=== PATIENT | female | born 1965 | race Caucasian/White ===

== ENCOUNTER 2018-03-23 12:24 | Emergency (ER) | payer BC ==
[2018-03-23] MEDS ORDERED: Sodium Chloride 0.9% 10 ML Syringe FLUSH PRN (13:44)
--- NOTE | 2018-03-23 14:21 | EDM.PDOC ---
<Richy Luke - Last Filed: 03/23/18 14:39> ED HPI GENERAL MEDICAL PROBLEM - General Chief Complaint: Flank Pain Stated Complaint: KIDNEY PAIN Time Seen by Provider: 03/23/18 12:48 Source of Information: Reports: Patient, Family History Limitations: Reports: No Limitations - History of Present Illness INITIAL COMMENTS - FREE TEXT/NARRATIVE: Patient is a 53-year-old female who presents to the ED complaining of flank pain. She reports the pain started yesterday and is located right above the belt -line on her lower back bilaterally. She describes the pain as contraction-like and stabbing that waxes and wanes. Today around 11 am, she developed stabbing midsternal chest pain that is triggered by the back pain/contractions. She has a history of hypertension and hyperlipidemia. Denies chest pressure, diaphoresis , nausea or vomiting. Denies history of back pain pain or recent injury. Does not have history of kidney stones. In addition to the back pain, she reports going into the clinic on Wednesday for a rash on her arms and legs. States she has been itching for a month prior to the rash developing. She reports changing out detergents, lotions, shampoos, and other products. She was started on Prednisone, hydroxyzine for the rash. Labs were drawn which revealed she was anemic. Due to those findings, a stool sample was collected on Wednesday and was positive for blood. Denies melena, but is having dark brown stools and one episode of diarrhea. She is currently taking iron supplements for the anemia. She does have a history of precancerous polyps and is being seen by Dr. Swift in [place]. Her most recent colonoscopy was in April 2017 and reports 4 polyps which were all benign. She is unable to see Dr. Swift, therefore is being referred to Dr. Ta for further evaluation and management Bilateral Flank Pain Score (Numeric/FACES): 7 - Related Data Allergies Allergy/AdvReac Type Severity Reaction Status Date / Time hornet venom Allergy UNKNOWN Verified 03/23/18 12:43 Home Meds: Home Meds Olmesartan/Hydrochlorothiazide [Benicar HCT 40-25 MG] 1 tab PO DAILY 03/23/18 [ History] Rosuvastatin [Crestor] 5 mg PO DAILY 03/23/18 [History] hydrOXYzine HCl [hydrOXYzine] 25 mg PO BEDTIME PRN 03/23/18 [History] predniSONE [Prednisone] 30 mg PO DAILY 03/23/18 [History] Past Medical History [employer] History: Reports: Hematologic History: Reports: Anemia, Iron Deficiency Other Dermatologic History: rash just started wednesday - Infectious Disease History Infectious Disease History: Reports: Chicken Pox, Measles - Past Surgical History HEENT Surgical History: Reports: Cataract Surgery GI Surgical History: Reports: Colonoscopy Social & Family History - Family History Family Medical History: Noncontributory - Tobacco Use Smoking Status *Q: Current Every Day Smoker Years of Tobacco use: 20 Packs/Tins Daily: 1 - Caffeine Use Caffeine Use: Reports: Soda - Recreational Drug Use Recreational Drug Use: No ED ROS GENERAL - Review of Systems Constitutional: Denies: Fever, Chills, Malaise, Diaphoresis, Decreased Appetite Respiratory: Denies: Shortness of Breath, Wheezing, Pleuritic Chest Pain, Cough Cardiovascular: Reports: Chest Pain. Denies: Dyspnea on Exertion, Lightheadedness, Palpitations GI/Abdominal: Reports: Black Stool, Diarrhea. Denies: Abdominal Pain, Bloody Stool, Decreased Appetite, Hematemesis, Melena Musculoskeletal: Reports: Back Pain. Denies: Shoulder Pain, Arm Pain Skin: Reports: Rash (arms and legs bilaterally) Neurological: Reports: Syncope. Denies: Dizziness Psychiatric: Denies: Agitation, Anxiety ED EXAM, GI/ABD - Physical Exam Exam Limited By: No Limitations General Appearance: Alert, WD/WN, No Apparent Distress. No: Anxious Respiratory/Chest: No Respiratory Distress, Lungs Clear, Normal Breath Sounds, No Accessory Muscle Use Cardiovascular: Regular Rate, Rhythm, No Gallop, No JVD, No Murmur, No Rub GI/Abdominal Exam: Normal Bowel Sounds, Soft, Non-Tender, No Distention. No: Guarding, Rigid Rectal (Female) Exam: Normal Exam, Normal Rectal Tone, Other (Stool guaiac positive) Back Exam: Normal Inspection, Full Range of Motion. No: CVA Tenderness (L), CVA Tenderness (R) Neurological: Alert, Oriented, Normal Cognition, No Motor/Sensory Deficits Psychiatric: Normal Affect, Normal Mood Course - Vital Signs Last Recorded V/S: Last Vital Signs Temp 98.2 F 03/23/18 12:34 Pulse 98 03/23/18 15:09 Resp 16 03/23/18 15:09 BP 123/71 03/23/18 15:09 Pulse Ox 99 03/23/18 15:09 - Orders/Labs/Meds Orders: Active Orders 24 hr Category Date Time Status EKG 12 Lead [EKG Documentation Completion] [RC] STAT Care 03/23/18 13:30 Active Peripheral IV Care [RC] . DIRECTED Care 03/23/18 13:45 Active UA W/MICROSCOPIC [URIN] Stat Lab 03/23/18 13:00 Ordered Peripheral IV Insertion Adult [OM.PC] Stat Oth 03/23/18 13:45 Ordered Labs: Laboratory Tests 03/23/18 03/23/18 03/23/18 Range/Units 12:55 12:55 13:00 WBC 8.46 (3.98-10.04) K/mm3 RBC 4.06 (3.98-5.22) M/mm3 Hgb 9.1 L (11.2-15.7) gm/L Hct 31.7 L (34.1-44.9) % MCV 78.1 L (79.4-94.8) fl MCH 22.4 L (25.6-32.2) pg MCHC 28.7 L (32.2-35.5) g/dl RDW Std Deviation 48.3 H (36.4-46.3) fL Plt Count 274 (182-369) K/mm3 MPV 9.9 (9.4-12.3) fl Neut % (Auto) 82.9 H (34.0-71.1) % Lymph % (Auto) 9.0 L (19.3-51.7) % [place] % (Auto) 6.5 (4.7-12.5) % Eos % (Auto) 0.8 (0.7-5.8) Baso % (Auto) 0.2 (0.1-1.2) % Neut # (Auto) 7.01 H (1.56-6.13) K/mm3 Lymph # (Auto) 0.76 L (1.18-3.74) K/mm3 [place] # (Auto) 0.55 H (0.24-0.36) K/mm3 Eos # (Auto) 0.07 (0.04-0.36) K/mm3 Baso # (Auto) 0.02 (0.01-0.08) K/mm3 Manual Slide Review Abnormal smear Troponin I < 0.017 (0.00-0.056) ng/mL Urine Color Light yellow (Yellow) Urine Appearance Clear (Clear) Urine pH 6.0 (5.0-8.0) Ur Specific [place] 1.020 (1.005-1.030) Urine Protein Negative (Negative) Urine Glucose (UA) Negative (Negative) Urine Ketones Negative (Negative) Urine Occult Blood Negative (Negative) Urine Nitrite Negative (Negative) Urine Bilirubin Negative (Negative) Urine Urobilinogen 0.2 (0.2-1.0) Ur Leukocyte Esterase Negative (Negative) Urine RBC 0-5 (0-5) /hpf Urine WBC 0-5 (0-5) /hpf Ur Epithelial Cells 0-5 (0-5) /hpf Urine Bacteria Rare (FEW) /hpf Urine Mucus Not seen (FEW) /hpf Meds: Medications Discontinued Medications Generic Name Dose Route Start Last Admin Trade Name Nicoq PRN Reason Stop Dose Admin Sodium Chloride 10 ml 03/23/18 13:44 03/23/18 12:55 Saline Flush FLUSH 10 ml ASDIRECTED PRN Administration Keep Vein Open Departure - Departure Disposition: Home, Self-Care 01 Clinical Impression: Atypical chest pain Anemia Qualifiers: Anemia type: unspecified type Qualified Code(s): D64.9 - Anemia, unspecified - Discharge Information Instructions: Anemia, Nonspecific Chest Pain, [id number] Referrals: Lorie Valente, MACHINE CAPTAIN [Primary Care Provider] - Forms: ED Department Discharge Additional Instructions: Your hgb was 9.1 today, 9.2 on Wednesday 2 days ago. Your heart and lungs check out well today. Your potassium was 3.3 on Wednesday, mildly low. Stop the potassium supplement for now as that can be hard on the stomach, try eat 1 or 2 bananas per day. See Dr Ta for endoscopy, possible colonoscopy as planned. Follow up clinic as needed, return to ED as needed. - My Orders Last 24 Hours: My Active Orders 03/23/18 13:00 UA W/MICROSCOPIC [URIN] Stat 03/23/18 13:30 EKG 12 Lead [EKG Documentation Completion] [RC] STAT 03/23/18 13:45 Peripheral IV Care [RC] . DIRECTED Peripheral IV Insertion Adult [OM.PC] Stat - Assessment/Plan Last 24 Hours: My Active Orders 03/23/18 13:00 UA W/MICROSCOPIC [URIN] Stat 03/23/18 13:30 EKG 12 Lead [EKG Documentation Completion] [RC] STAT 03/23/18 13:45 Peripheral IV Care [RC] . DIRECTED Peripheral IV Insertion Adult [OM.PC] Stat <Vijay Wilson L - Last Filed: 03/23/18 19:30> ED ROS GENERAL - Review of Systems Review Of Systems: See Below ED EXAM, GI/ABD - Physical Exam Exam: See Below Course - Re-Assessments/Exams Free Text/Narrative Re-Assessment/Exam: 03/23/18 19:28 initial hx and exam was done by Alfonzo Ramos, PLEATING MACHINE OPERATOR student. I agree with her hx and exam. I have also evaluated patient. EKG does not show acute changes. trop did come back normal. That was her main concern at this time. Hgb today 9.1, 9.2 2 days ago. Discharge instr. as documented. Departure - Departure Time of Disposition: 14:56 Condition: Fair
== END 2018-03-23 15:09 | disposition home or self-care (01) ==
LOC: JD.ED 12:24
DX: R07.89 Other chest pain (principal); D64.9 Anemia, unspecified; Z79.899 Other long term (current) drug therapy; Z91.030 Bee allergy status; F17.210 Nicotine dependence, cigarettes, uncomplicated
CPT/HCPCS: 36415; 81001; 84484; 85025; 93005; 99285; J7050; 93010; 99284-25

== ENCOUNTER 2019-08-21 08:45 | Emergency (ER) | payer BC ==
--- NOTE | 2019-08-21 09:09 | EDM.PDOC ---
ED HPI GENERAL MEDICAL PROBLEM - General Chief Complaint: Gastrointestinal Problem Stated Complaint: SOB AND FEELS LIKE SHE IS GONNA PASS OUT Time Seen by Provider: 08/21/19 09:03 Source of Information: Reports: Patient, Family (spouse) - History of Present Illness INITIAL COMMENTS - FREE TEXT/NARRATIVE: 54-year-old female presents the ED feeling very weak dizzy and lightheaded. States that Wednesday last week August 16 she noticed dark black tarry stools and similarly they continued throughout or Wednesday and Wednesday. Yesterday she had a fairly normal colored stool. He is been having occult GI bleeding for about a year and a half with out inability to identify source. She reports she's had 6 upper GI endoscopies 2 colonoscopies and 1 swallowing of the camera which was unsuccessful in identifying source of bleeding. At present she feels very weak and tired and short of breath on minimal exertion.. She does take iron supplement daily. Last menstrual period was about 6 years ago. No other sources of bleeding identified. She has never used Pepto-Bismol. Onset: Gradual Onset Date: 08/16/19 (First day of black tarry stools was last week Wednesday.) Duration: Day(s):, Intermittent Location: Reports: Other (GI bleeding of unclear origin 18 months. By history it sounds like no identifiable source is been identified on colonoscopy and upper GI endoscopy suggesting a small bowel source.) Quality: Reports: Other (Has some diffuse lower abdominal discomfort periumbilical discomfort at times.) Severity: Mild (Constipated.) Improves with: Reports: None Worsens with: Reports: None Context: Denies: Activity, Exercise, Lifting, Sick Contact, Trauma, Other Associated Symptoms: Reports: Cough, cough w sputum (Chronic cough.), Malaise, Shortness of Breath, Weakness. 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 Nothing new.) - Related Data Allergies Allergy/AdvReac Type Severity Reaction Status Date / Time hornet venom Allergy UNKNOWN Verified 08/21/19 08:59 Home Meds: Home Meds Olmesartan/Hydrochlorothiazide [Benicar HCT 40-25 MG] 1 tab PO DAILY 03/23/18 [ History] Rosuvastatin [Crestor] 5 mg PO DAILY 03/23/18 [History] EPINEPHrine [Epipen] 1 dose IM ASDIRECTED PRN 08/21/19 [History] Ferrous Sulfate 27 mg PO DAILY 08/21/19 [History] Krill Oil 500 mg PO BID 08/21/19 [History] L.acidoph,Paracasei, B.lactis [Probiotic] 1 each PO DAILY 08/21/19 [History] Multivit-Min/Iron/Folic/Lutein [Multivitamin Women 50 Plus Tab] 1 each PO DAILY 08/21/19 [History] Omalizumab [Xolair] 150 mg IM ASDIRECTED 08/21/19 [History] Pantoprazole [ProTONIX] 40 mg PO BID 08/21/19 [History] Rhubarb Root Extract [Estroven Cmplt Menopause Rlf] 4 mg PO DAILY 08/21/19 [ History] Past Medical History CARAMEL C[employer] HAND History: Reports: Hematologic History: Reports: Anemia, Iron Deficiency Other Dermatologic History: rash just started wednesday. 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 The feeling is if this is related to likely GI source of bleeding i.e. carcinoid syndrome. - Infectious Disease History Infectious Disease History: Reports: Chicken Pox, Measles - Past Surgical History HEENT Surgical History: Reports: Cataract Surgery GI Surgical History: Reports: Colonoscopy Social & Family History - Family History Family Medical History: Noncontributory - Caffeine Use Caffeine Use: Reports: Soda - Living Situation & Occupation Living situation: Reports: Single Occupation: Employed [employer] [facility] - Review of Systems Review Of Systems: See Below Constitutional: Reports: Malaise, Weakness, Fatigue. Denies: Fever, Chills HEENT: Reports: No Symptoms Respiratory: Reports: No Symptoms Cardiovascular: Reports: Blood Pressure Problem (Sometimes runs a little low.), Palpitations Endocrine: Reports: Fatigue GI/Abdominal: Reports: Abdominal Pain (Abdominal discomfort periumbilical and infraumbilical.), Melena (Dark black tarry stool.). Denies: Decreased Appetite : Reports: No Symptoms Musculoskeletal: Reports: Other Skin: Reports: No Symptoms (Revised weakness in her muscles.) Neurological: Reports: No Symptoms Psychiatric: Reports: No Symptoms Hematologic/Lymphatic: Reports: No Symptoms Immunologic: Reports: No Symptoms ED EXAM, GI/ABD - Physical Exam Exam: See Below Exam Limited By: Other (Does appear mildly pallid. Temperatures 36.7 heart rate is 105 at the bedside. Respiratory 16 BP 126/50 lying. Pulse is 99.) Eyes: Bilateral: Pale Conjunctiva (Mild bilaterally.) Head: Atraumatic, Normocephalic, Other Neck: Normal Inspection (Tongue appears to be slightly wider than normal.), Supple, Non-Tender, Full Range of Motion. No: Lymphadenopathy (L), Lymphadenopathy (R) Respiratory/Chest: No Respiratory Distress, Lungs Clear, Normal Breath Sounds, No Accessory Muscle Use, Chest Non-Tender Cardiovascular: Normal Peripheral Pulses, Regular Rate, Rhythm, No Edema, No Gallop, No Murmur, No Rub GI/Abdominal Exam: Soft, Non-Tender ( Her from 2 previous C-sections.), No Organomegaly, No Abnormal Bruit, No Mass, Pelvis Stable, Abnormal Bowel Sounds, Other (Gallstones from her fairly quiescent in all 4 quadrants.) Back Exam: Normal Inspection, Full Range of Motion. No: CVA Tenderness (L), CVA Tenderness (R) Extremities: Normal Inspection, Normal Range of Motion, Non-Tender Neurological: Alert, Oriented, CN II-XII Intact, Normal Cognition, Normal Gait Psychiatric: Normal Affect, Normal Mood Skin Exam: Warm, Dry, Intact, No Rash (Mildly pallid.), Pallor Course - Vital Signs Last Recorded V/S: Last Vital Signs Temp 36.9 C 08/21/19 18:20 Pulse 84 08/21/19 18:20 Resp 20 08/21/19 18:20 BP 114/53 L 08/21/19 18:20 Pulse Ox 93 L 08/21/19 18:20 Orthostatic Blood Pressure [ 61/39 Standing] Orthostatic Blood Pressure [ 89/35 Sitting] Orthostatic Blood Pressure [ 91/44 Supine] - Orders/Labs/Meds Orders: Active Orders 24 hr Category Date Time Status Orthostatic Vital Signs [RC] ASDIRECTED Care 08/21/19 09:03 Active Transfuse PRBC [Transfuse Red Blood Cells] [COMM] Stat Oth 08/21/19 09:29 Ordered Labs: Laboratory Tests 08/21/19 08/21/19 08/21/19 Range/Units 09:07 09:07 09:07 WBC 7.59 (3.98-10.04) K/mm3 RBC 2.75 L (3.98-5.22) M/mm3 Hgb 6.9 L* D (11.2-15.7) gm/dl Hct 23.5 L (34.1-44.9) % MCV 85.5 D (79.4-94.8) fl MCH 25.1 L (25.6-32.2) pg MCHC 29.4 L (32.2-35.5) g/dl RDW Std Deviation 49.4 H (36.4-46.3) fL Plt Count 225 (182-369) K/mm3 MPV 9.0 L (9.4-12.3) fl Neutrophils % (Manual) 90 H (40-60) % Band Neutrophils % 0 (0-10) % Lymphocytes % (Manual) 4 L (20-40) % Atypical Lymphs % 0 % Monocytes % (Manual) 2 (2-10) % Eosinophils % (Manual) 3 (0.7-5.8) % Basophils % (Manual) 1 (0.1-1.2) Platelet Estimate Adequate Poikilocytosis 1+ slight Anisocytosis 1+ slight RBC Morph Comment Not Reportable ESR (0-20) mm/hr Percent Retic (0.50-1.70) % PT 10.3 (9.7-12.0) SECONDS INR 0.94 APTT 22 (22-31) SECONDS Sodium 141 (136-145) mEq/L Potassium 3.3 L (3.5-5.1) mEq/L Chloride 105 (98-107) mEq/L Carbon Dioxide 25 (21-32) mEq/L Anion Gap 14.3 (5-15) BUN 16 (7-18) mg/dL Creatinine 1.0 (0.55-1.02) mg/dL Est Cr Clr Drug Dosing 57.87 mL/min Estimated GFR (MDRD) 58 (>60) mL/min BUN/Creatinine Ratio 16.0 (14-18) Glucose 154 H (74-106) mg/dL Calcium 8.8 (8.5-10.1) mg/dL Magnesium 1.8 (1.8-2.4) mg/dl Iron (50-170) ug/dL TIBC (100-400) ug/dL % Saturation (20-55) % Transferrin (202-364) mg/dL Total Bilirubin 0.3 (0.2-1.0) mg/dL AST 25 (15-37) U/L ALT 43 (14-59) U/L Alkaline Phosphatase 76 (46-116) U/L C-Reactive Protein < 0.2 (<1.0) mg/dL Total Protein 7.1 (6.4-8.2) g/dl Albumin 3.6 (3.4-5.0) g/dl Globulin 3.5 gm/dL Albumin/Globulin Ratio 1.0 (1-2) Urine Color (Yellow) Urine Appearance (Clear) Urine pH (5.0-8.0) Ur Specific [place] (1.005-1.030) Urine Protein (Negative) Urine Glucose (UA) (Negative) Urine Ketones (Negative) Urine Occult Blood (Negative) Urine Nitrite (Negative) Urine Bilirubin (Negative) Urine Urobilinogen (0.2-1.0) Ur Leukocyte Esterase (Negative) Urine RBC (0-5) /hpf Urine WBC (0-5) /hpf Ur Squamous Epith Cells (0-5) /hpf Urine Bacteria (FEW) /hpf Hyaline Casts (0-5) /lpf Urine Mucus (FEW) /hpf Blood Type Gel Antibody Screen Crossmatch 08/21/19 08/21/19 08/21/19 Range/Units 09:07 09:07 09:07 WBC (3.98-10.04) K/mm3 RBC (3.98-5.22) M/mm3 Hgb (11.2-15.7) gm/dl Hct (34.1-44.9) % MCV (79.4-94.8) fl MCH (25.6-32.2) pg MCHC (32.2-35.5) g/dl RDW Std Deviation (36.4-46.3) fL Plt Count (182-369) K/mm3 MPV (9.4-12.3) fl Neutrophils % (Manual) (40-60) % Band Neutrophils % (0-10) % Lymphocytes % (Manual) (20-40) % Atypical Lymphs % % Monocytes % (Manual) (2-10) % Eosinophils % (Manual) (0.7-5.8) % Basophils % (Manual) (0.1-1.2) Platelet Estimate Poikilocytosis Anisocytosis RBC Morph Comment ESR 48 H (0-20) mm/hr Percent Retic (0.50-1.70) % PT (9.7-12.0) SECONDS INR APTT (22-31) SECONDS Sodium (136-145) mEq/L Potassium (3.5-5.1) mEq/L Chloride (98-107) mEq/L Carbon Dioxide (21-32) mEq/L Anion Gap (5-15) BUN (7-18) mg/dL Creatinine (0.55-1.02) mg/dL Est Cr Clr Drug Dosing mL/min Estimated GFR (MDRD) (>60) mL/min BUN/Creatinine Ratio (14-18) Glucose (74-106) mg/dL Calcium (8.5-10.1) mg/dL Magnesium (1.8-2.4) mg/dl Iron 14 L (50-170) ug/dL TIBC 540 H (100-400) ug/dL % Saturation 3 L (20-55) % Transferrin 432 H (202-364) mg/dL Total Bilirubin (0.2-1.0) mg/dL AST (15-37) U/L ALT (14-59) U/L Alkaline Phosphatase (46-116) U/L C-Reactive Protein (<1.0) mg/dL Total Protein (6.4-8.2) g/dl Albumin (3.4-5.0) g/dl Globulin gm/dL Albumin/Globulin Ratio (1-2) Urine Color (Yellow) Urine Appearance (Clear) Urine pH (5.0-8.0) Ur Specific [place] (1.005-1.030) Urine Protein (Negative) Urine Glucose (UA) (Negative) Urine Ketones (Negative) Urine Occult Blood (Negative) Urine Nitrite (Negative) Urine Bilirubin (Negative) Urine Urobilinogen (0.2-1.0) Ur Leukocyte Esterase (Negative) Urine RBC (0-5) /hpf Urine WBC (0-5) /hpf Ur Squamous Epith Cells (0-5) /hpf Urine Bacteria (FEW) /hpf Hyaline Casts (0-5) /lpf Urine Mucus (FEW) /hpf Blood Type A POSITIVE Gel Antibody Screen Negative Crossmatch See Detail 08/21/19 08/21/19 Range/Units 09:07 11:02 WBC (3.98-10.04) K/mm3 RBC (3.98-5.22) M/mm3 Hgb (11.2-15.7) gm/dl Hct (34.1-44.9) % MCV (79.4-94.8) fl MCH (25.6-32.2) pg MCHC (32.2-35.5) g/dl RDW Std Deviation (36.4-46.3) fL Plt Count (182-369) K/mm3 MPV (9.4-12.3) fl Neutrophils % (Manual) (40-60) % Band Neutrophils % (0-10) % Lymphocytes % (Manual) (20-40) % Atypical Lymphs % % Monocytes % (Manual) (2-10) % Eosinophils % (Manual) (0.7-5.8) % Basophils % (Manual) (0.1-1.2) Platelet Estimate Poikilocytosis Anisocytosis RBC Morph Comment ESR (0-20) mm/hr Percent Retic 4.00 H (0.50-1.70) % PT (9.7-12.0) SECONDS INR APTT (22-31) SECONDS Sodium (136-145) mEq/L Potassium (3.5-5.1) mEq/L Chloride (98-107) mEq/L Carbon Dioxide (21-32) mEq/L Anion Gap (5-15) BUN (7-18) mg/dL Creatinine (0.55-1.02) mg/dL Est Cr Clr Drug Dosing mL/min Estimated GFR (MDRD) (>60) mL/min BUN/Creatinine Ratio (14-18) Glucose (74-106) mg/dL Calcium (8.5-10.1) mg/dL Magnesium (1.8-2.4) mg/dl Iron (50-170) ug/dL TIBC (100-400) ug/dL % Saturation (20-55) % Transferrin (202-364) mg/dL Total Bilirubin (0.2-1.0) mg/dL AST (15-37) U/L ALT (14-59) U/L Alkaline Phosphatase (46-116) U/L C-Reactive Protein (<1.0) mg/dL Total Protein (6.4-8.2) g/dl Albumin (3.4-5.0) g/dl Globulin gm/dL Albumin/Globulin Ratio (1-2) Urine Color Yellow (Yellow) Urine Appearance Clear (Clear) Urine pH 6.0 (5.0-8.0) Ur Specific [place] 1.025 (1.005-1.030) Urine Protein Negative (Negative) Urine Glucose (UA) Negative (Negative) Urine Ketones Negative (Negative) Urine Occult Blood Negative (Negative) Urine Nitrite Negative (Negative) Urine Bilirubin Negative (Negative) Urine Urobilinogen 0.2 (0.2-1.0) Ur Leukocyte Esterase Negative (Negative) Urine RBC 0-5 (0-5) /hpf Urine WBC 0-5 (0-5) /hpf Ur Squamous Epith Cells 0-5 (0-5) /hpf Urine Bacteria Few (FEW) /hpf Hyaline Casts 0-5 (0-5) /lpf Urine Mucus Few (FEW) /hpf Blood Type Gel Antibody Screen Crossmatch Meds: Medications Discontinued Medications Generic Name Dose Route Start Last Admin Trade Name Freq PRN Reason Stop Dose Admin Sodium Chloride 1,000 mls @ 500 mls/hr 08/21/19 09:15 08/21/19 09:15 Normal Saline IV 500 mls/hr ASDIRECTED BALTAZAR Administration Sodium Chloride 500 mls @ 50 mls/hr 08/21/19 11:45 08/21/19 11:55 Normal Saline IV 50 mls/hr ASDIRECTED BALTAZAR Administration - Radiology Interpretation Free Text/Narrative:: 54-year-old female presents to the ED for evaluation of dark black tarry stools per rectum starting last August 16. Stool yesterday was formed up and normal in color. She has had been having intermittent GI bleeds for the last year and a half for which no source has been identified. She's had 6 upper GI endoscopies and 2 colonoscopies and one camera that she swallowed that did not define the source of bleeding. She has an unusual symptom of generalized pruritus which is felt to be related to the GI bleeding source. Possible carcinoid syndrome. At present she presents because she is dyspneic lightheaded and short of breath on minimal exertion believing that she once again is anemic enough to need of blood transfusion. He has had to have several blood transfusions over the last year and a half. Vital signs show BP 91/44 supine with a heart rate of 95. Sitting blood pressure was 89/35 with a heart rate of 101 and standing it was 61/39 with a pulse rate of 99. Patient will have blood typed and screened. Routine labs performed. She will likely need 2 units of blood. IV will be D5 normal saline at 500 mils per hour at this time. - Re-Assessments/Exams Free Text/Narrative Re-Assessment/Exam: 08/21/19 09:30 hemoglobin returned at 6.9. For the type and crossed for 3 units of packed RBCs to get her above 9 since she is symptomatic and orthostatic. Consent will be signed for transfusion of 3 units of packed cells. has consented to 3 units of packed cells. 08/21/19 14:00: Patient has completed first unit of packed cells with no problems. Second unit is just been started. Her pressure is 104/50 sats are 95% heart rate is 86 in sinus.Labs reveal a total white count of 7.59. Hemoglobin is 6.9 with hematocrit of 23.5. MCV is 85.5. Platelet count 225,000. The smear shows 1+ poikilocytosis and 1+ anisocytosis. Sedimentation rate is 48% reticulocyte count is 4.0 with normal being up to 1.7. PT is 10.3 with an INR of 0.94 PTT is 22. Sodium 141 with a potassium of 3.3. Chloride 105 with a bicarbonate 25. Anion gap is 14.3. BUN is 16 with a creatinine of 1.0. GFR is 58 glucose 154 calcium 8.8 magnesium 1.8. Iron is low at 14 with a total iron binding capacity of 432 which is elevated. Percent saturation is 3. Serum transferrin is elevated at 432. Total bilirubin is 0.3 AST is 25 ALT is 43 C- reactive protein is less than 0.2. Urinalysis is normal. 08/21/19 15:56 patient is doing well. O2 sats remained 94-95%. BP has improved to 125/97. Heart rate is 78 in sinus 08/21/19 17:51 currently has about a half a unit of blood to infuse. She's had no problems with the 3 units that are transfused. Blood pressure is 117/60 heart rate is 79 in sinus. 08/21/19 18:27 is completed 3 units of packed cells. She will be discharged to home. Plan is to follow-up with in a few days time in the hopes of trying to arrange consultation at the [facility]. I think this is certainly advisable. I'm not sure if there is anybody in [place] that does this type of work to look for a potential bleeding source from the small bowel. Departure - Departure Time of Disposition: 18:28 Disposition: Home, Self-Care 01 Condition: Fair Clinical Impression: Recurrent gastrointestinal hemorrhage Anemia Qualifiers: Anemia type: unspecified type Qualified Code(s): D64.9 - Anemia, unspecified - Discharge Information *PRESCRIPTION DRUG MONITORING PROGRAM REVIEWED*: Not Applicable *COPY OF PRESCRIPTION DRUG MONITORING REPORT IN PATIENT FRANCIS: Not Applicable Instructions: Blood Transfusion, Adult, [id number], Gastrointestinal Bleeding , [id number] Referrals: Lorie Valenet [employer] [Primary Care Provider] - Forms: ED Department Discharge Additional Instructions: Evaluation the emergency room today in regards to marked symptoms of anemia. He recognized dark black tarry stools occurring last Wednesday that lasted for 3-1/ 2 days. Normal bowel movement yesterday. Today you had significant symptoms of feeling very lightheaded and dizzy upon standing as well as shortness of breath on minimal exertion. Lab tests revealed a hemoglobin of 6.9. Studies revealed you to be quite low on iron due to persistent blood loss in the GI tract of unclear origin. You therefore received 3 units of packed red blood cells while in the emergency department to bring her hemoglobin up close to 9.5-10. You do need further investigations as to the source of GI bleeding since upper GI endoscopy 6 has not yielded any obvious ulceration in the upper GI tree to cause recurrent bleeding. No colonoscopy 2 is not yielded any positive results. This suggests that you have a bleeding lesion somewhere within the 21 feet of small bowel. Therefore further investigation is definitely required as to the source of the bleeding. Please follow-up with your normal care provider to arrange further gastroenterology studies and perhaps follow-up at the [facility] for definitive management to see if they can identify the source of persistent recurrent bleeding. Sepsis Event Note - Evaluation Sepsis Screening Result: No Definite Risk - Focused Exam Date Exam was Performed: 08/22/19 Time Exam was Performed: 06:57 - My Orders Last 24 Hours: My Active Orders 08/21/19 09:03 Orthostatic Vital Signs [RC] ASDIRECTED 08/21/19 09:29 Transfuse PRBC [Transfuse Red Blood Cells] [COMM] Stat - Assessment/Plan Last 24 Hours: My Active Orders 08/21/19 09:03 Orthostatic Vital Signs [RC] ASDIRECTED 08/21/19 09:29 Transfuse PRBC [Transfuse Red Blood Cells] [COMM] Stat
[2019-08-21] MEDS ORDERED: Sodium Chloride 0.9% 1,000 ML IV SCH (09:15)
[2019-08-21] MEDS ORDERED: Sodium Chloride 0.9% 500 ML IV SCH (11:45)
== END 2019-08-21 18:45 | disposition home or self-care (01) ==
LOC: JD.ED 08:45
DX: K92.2 Gastrointestinal hemorrhage, unspecified (principal); D64.9 Anemia, unspecified; Z91.030 Bee allergy status
CPT/HCPCS: 36415; 36430; 80053; 81001; 83540; 83735; 84466; 85007; 85027; 85045; 85610; 85652; 85730; 86140; 86850; 86900; 86901; 86922; J7030; J7040; P9016; 99284

== ENCOUNTER 2019-09-21 18:27 | Emergency (ER) | payer BC ==
[2019-09-21] MEDS ORDERED: Sodium Chloride 0.9% 10 ML Syringe FLUSH PRN (18:41)
--- NOTE | 2019-09-21 19:09 | EDM.PDOC ---
ED HPI GENERAL MEDICAL PROBLEM - General Chief Complaint: Gastrointestinal Problem Stated Complaint: HEMOGLOBIN AT 7.5 Time Seen by Provider: 09/21/19 18:41 Source of Information: Reports: Patient, Family (spouse) History Limitations: Reports: No Limitations - History of Present Illness INITIAL COMMENTS - FREE TEXT/NARRATIVE: 54-year-old female presents the ED for evaluation of recurrent bleeding of unclear etiology. Patient has had recurrent bouts of GI bleeding for many months and has had multiple EGDs I believe 5 and 3 colonoscopies and a camera study without identification of source of bleeding. Her last hospitalization here your hemoglobin was 11.2 and it stayed stable up until Wednesday when she started to have black tarry stools once again. This is September 12.3 black tarry stools that day. She only had one and felt that she had become more constipated by Wednesday. Average she's been having one black stool to a day and but has had 2 so far today. When she presented to the clinic this morning to see at [facility] her hemoglobin was 8.7. And she seen him this afternoon she had another dark black stool. Hemoglobin then dropped further to 7.5. She is feeling a little bit lightheaded and dizzy with standing. Short of breath on minimal exertion. No cramping or extremities. Pain. Has no abdominal pain cramping. She's never had any hematemesis. She is scheduled apparently to travel to the [facility] sometime in December to see a electronics utility worker there since the source of her bleeding has not been identified in [place]. Present she is orthostatic and will require some fluids. Is on traveling to [facility] by private vehicle with her driving. Aid Units of blood. It was felt that this suggest delayed her transfer by cross-matching her here. Get on the road as soon as possible due to the late hour. Onset: Gradual Onset Date: 09/17/19 (Black tarry stools on average 3 times daily for the last 4 days.) Duration: Day(s):, Intermittent, Other (Continuing blood loss) Location: Reports: Abdomen, Other (Continued black tarry stools for 4 days) Quality: Reports: Other (Lightheaded and dizzy with standing) Severity: Mild Improves with: Reports: None Worsens with: Reports: None Context: Denies: Activity, Exercise, Lifting, Sick Contact, Trauma Associated Symptoms: Reports: Malaise, Shortness of Breath (On exertion). Denies: No Other Symptoms, Confusion, Chest Pain, Cough, cough w sputum, Diaphoresis, Fever/Chills, Headaches, Loss of Appetite, Nausea/Vomiting, Rash, Seizure, Syncope, Weakness - Related Data Allergies Allergy/AdvReac Type Severity Reaction Status Date / Time hornet venom Allergy UNKNOWN Verified 09/21/19 18:40 Home Meds: Home Meds Olmesartan/Hydrochlorothiazide [Benicar HCT 40-25 MG] 1 tab PO DAILY 03/23/18 [ History] Rosuvastatin [Crestor] 5 mg PO DAILY 03/23/18 [History] EPINEPHrine [Epipen] 1 dose IM ASDIRECTED PRN 08/21/19 [History] Krill Oil 500 mg PO BID 08/21/19 [History] Multivit-Min/Iron/Folic/Lutein [Multivitamin Women 50 Plus Tab] 1 each PO DAILY 08/21/19 [History] Omalizumab [Xolair] 150 mg IM ASDIRECTED 08/21/19 [History] Pantoprazole [ProTONIX] 40 mg PO BID 08/21/19 [History] Rhubarb Root Extract [Estroven Cmplt Menopause Rlf] 4 mg PO DAILY 08/21/19 [ History] Ferrous Sulfate. 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 The feeling is if this is related to likely GI source of bleeding i.e. carcinoid syndrome. - Infectious Disease History Infectious Disease History: Reports: Chicken Pox, Measles - Past Surgical History HEENT Surgical History: Reports: Cataract Surgery GI Surgical History: Reports: Colonoscopy, EGD Female Surgical History: Reports: Section Social & Family History - Family History Family Medical History: Noncontributory - Tobacco Use Smoking Status *Q: Current Every Day Smoker Years of Tobacco use: 30 Packs/Tins Daily: 1 - Caffeine Use Caffeine Use: Reports: Energy Drinks Other Caffeine Use: 1 daily - Recreational Drug Use Recreational Drug Use: No - Living Situation & Occupation Living situation: Reports: Single Occupation: Employed ED ROS GENERAL - Review of Systems Review Of Systems: See Below Constitutional: Reports: Malaise, Weakness, Fatigue, Decreased Appetite. Denies : Fever, Chills HEENT: Reports: No Symptoms Respiratory: Reports: Shortness of Breath. Denies: Wheezing, Pleuritic Chest Pain (On exertion.), Cough, Sputum, Hemoptysis Cardiovascular: Reports: Blood Pressure Problem, Dyspnea on Exertion (Continue going up a flight of stairs), Lightheadedness. Denies: Chest Pain, Claudication , Edema, Orthopnea Endocrine: Reports: Fatigue GI/Abdominal: Reports: Melena (Alexei he stools on average 3 times daily for the last 4 days.). Denies: Abdominal Pain, Diarrhea, Decreased Appetite, Flatus , Hematemesis : Reports: No Symptoms Musculoskeletal: Reports: No Symptoms Skin: Reports: Pallor Neurological: Reports: Dizziness Psychiatric: Reports: No Symptoms ED EXAM, GI/ABD - Physical Exam Exam: See Below Exam Limited By: No Limitations General Appearance: Alert, WD/WN, No Apparent Distress, Other (She is obviously quite pallid. Is 36.6 heart rate was 108 at the bedside BP was 150/63 at the time of check-in. Orthostatics proved positive for with little change in her heart rate but a significant drop in systolic blood pressure into the 87 systolic range.) Eyes: Bilateral: Pale Conjunctiva (Moderate) Ears: Normal External Exam, Normal TMs Nose: Normal Inspection Throat/Mouth: Normal Inspection, Normal Oropharynx, Normal Voice, Other Head: Atraumatic, Normocephalic (Lips are pallid as is her tongue.) Neck: Normal Inspection, Supple, Non-Tender, Full Range of Motion. No: Lymphadenopathy (L), Lymphadenopathy (R) Respiratory/Chest: No Respiratory Distress, Lungs Clear, Normal Breath Sounds, No Accessory Muscle Use Cardiovascular: Regular Rate, Rhythm (Heart rate on my assessment was 98/m.), No Edema, No Gallop, No Murmur, No Rub GI/Abdominal Exam: Normal Bowel Sounds, Soft, Non-Tender, No Organomegaly, No Abnormal Bruit, No Mass, Pelvis Stable Back Exam: Normal Inspection, Full Range of Motion. No: CVA Tenderness (L), CVA Tenderness (R) Extremities: Normal Inspection, Normal Range of Motion, Non-Tender Neurological: Alert, Oriented, CN II-XII Intact, Normal Cognition Psychiatric: Normal Affect, Normal Mood Skin Exam: Warm, Dry, Intact, Pallor (Moderate pallor.) Course - Vital Signs Last Recorded V/S: Last Vital Signs Temp 36.6 C 09/21/19 18:35 Pulse 108 H 09/21/19 18:35 Resp 17 09/21/19 18:35 BP 152/63 H 09/21/19 18:35 Pulse Ox 100 09/21/19 18:35 Orthostatic Blood Pressure [ 83/50 Standing] Orthostatic Blood Pressure [ 97/55 Sitting] Orthostatic Blood Pressure [ 115/56 Supine] - Orders/Labs/Meds Orders: Active Orders 24 hr Category Date Time Status Orthostatic Vital Signs [RC] ASDIRECTED Care 09/21/19 19:01 Active Peripheral IV Care [RC] . DIRECTED Care 09/21/19 18:43 Active TYPE AND SCREEN [BBK] Stat Lab 09/21/19 19:36 Received Sodium Chloride 0.9% [Normal Saline] 1,000 ml Med 09/21/19 19:15 Active IV ASDIRECTED Sodium Chloride 0.9% [Saline Flush] Med 09/21/19 18:41 Active 10 ml FLUSH ASDIRECTED PRN Peripheral IV Insertion Adult [OM.PC] Stat Oth 09/21/19 18:42 Ordered Medication Orders Sodium Chloride (Normal Saline) 1,000 mls @ 999 mls/hr IV ASDIRECTED BALTAZAR Last Admin: 09/21/19 19:39 Dose: 999 mls/hr Sodium Chloride (Saline Flush) 10 ml FLUSH ASDIRECTED PRN PRN Reason: Keep Vein Open Last Admin: 09/21/19 19:39 Dose: 10 ml Labs: Laboratory Tests 09/21/19 09/21/19 Range/Units 19:36 19:36 WBC 8.15 (3.98-10.04) K/mm3 RBC 2.58 L (3.98-5.22) M/mm3 Hgb 7.1 L* (11.2-15.7) gm/dl Hct 23.4 L (34.1-44.9) % MCV 90.7 D (79.4-94.8) fl MCH 27.5 (25.6-32.2) pg MCHC 30.3 L (32.2-35.5) g/dl RDW Std Deviation 58.9 H (36.4-46.3) fL Plt Count 239 (182-369) K/mm3 MPV 9.4 (9.4-12.3) fl Neut % (Auto) 59.5 (34.0-71.1) % Lymph % (Auto) 27.7 (19.3-51.7) % [place] % (Auto) 10.1 (4.7-12.5) % Eos % (Auto) 2.3 (0.7-5.8) Baso % (Auto) 0.2 (0.1-1.2) % Neut # (Auto) 4.84 (1.56-6.13) K/mm3 Lymph # (Auto) 2.26 (1.18-3.74) K/mm3 [place] # (Auto) 0.82 H (0.24-0.36) K/mm3 Eos # (Auto) 0.19 (0.04-0.36) K/mm3 Baso # (Auto) 0.02 (0.01-0.08) K/mm3 Manual Slide Review Abnormal smear PT 10.1 (9.7-12.0) SECONDS INR < 0.93 Meds: Medications Generic Name Dose Route Start Last Admin Trade Name Freq PRN Reason Stop Dose Admin Sodium Chloride 1,000 mls @ 999 mls/hr 09/21/19 19:15 09/21/19 19:39 Normal Saline IV 999 mls/hr ASDIRECTED BALTAZAR Administration Sodium Chloride 10 ml 09/21/19 18:41 09/21/19 19:39 Saline Flush FLUSH 10 ml ASDIRECTED PRN Administration Keep Vein Open Discontinued Medications Generic Name Dose Route Start Last Admin Trade Name Freq PRN Reason Stop Dose Admin Ondansetron HCl 4 mg 09/21/19 19:18 09/21/19 19:22 Zofran Odt PO 09/21/19 19:19 4 mg ONETIME ONE Administration - Radiology Interpretation Free Text/Narrative:: Evaluation the emergency room today in regards to setting sent over from [facility] after seeing her primary care physician . It appears once again she has started to bleed internally. Source of GI blood loss. Stools are dark black and tarry suggesting an upper GI source but she has had 5 upper GI evaluations with no positive findings. Therefore it is suspect that she has a small bowel lesion somewhere that is continuing to bleed intermittently. Patient is been having dark black tarry stools on average 3 times daily since September 17. This morning prior to seeing her physician was 8.7 but she got 7.5 this afternoon. She's had 2 black tarry stools thus far today. She is orthostatic. Plans are to travel to [place] to be admitted to [facility] therefore crossmatch was felt to be futile and point to delay in transport. She will receive a liter of crystalloid at this time. Dr. Wilson had ordered some initial labs on her. - Re-Assessments/Exams Free Text/Narrative Re-Assessment/Exam: 09/21/19 19:44 Nurses are struggling to get an IV on her and she is somewhat needle phobic. Her dry heaving and nausea. This dropped her blood pressure into the 83 systolic range. Given Zofran 4 mg sublingual. 09/21/19 20:24 Patient did have a dark chocolate brown 5-appearing stool but not black after IV stick. Current BP is 99/42. She has received partially 600 mils of crystalloid thus far.Repeat labs show a normal white count at 8.15. Auto differential shows 59% neutrophils. Hemoglobin is low at 7.1 suggesting continuing bleeding. Hematocrit is 23.4. MCV is 90.7. Platelet count 39,000. He is 10.1 with an INR of 0.93. Pressure at present is 100/71. She states her blood pressure normally runs 134/75. She and her are absolutely adamant that they do not want to take the months and will go by private vehicle. I have recommended against this but he did not wish to pay the high ambulance bills which they have already received multiple of. 09/21/19 20:46 is able to speak with Dr. Allen--ED physician at [facility] and she is accepted care. She'll be taken to the ED by her per private vehicle at their request. They declined ambulance transport. Her blood pressure is 104 on 50. Sats are 95% on room air heart rate is 91 respiratory 17 at rest. She has completed liter of normal saline while in the ED to provide some crystalloid for her low blood pressure. Departure - Departure Time of Disposition: 20:46 Disposition: DC/Tfer to Acute Hospital 02 Condition: Fair Clinical Impression: Gastrointestinal hemorrhage Qualifiers: GI bleed type/associated pathology: unspecified gastrointestinal hemorrhage type Qualified Code(s): K92.2 - Gastrointestinal hemorrhage, unspecified Anemia Qualifiers: Anemia type: unspecified type Qualified Code(s): D64.9 - Anemia, unspecified - Discharge Information *PRESCRIPTION DRUG MONITORING PROGRAM REVIEWED*: Not Applicable *COPY OF PRESCRIPTION DRUG MONITORING REPORT IN PATIENT FRANCIS: Not Applicable Referrals: Jamey Cabral MD [Primary Care Provider] - Forms: ED Department Discharge Additional Instructions: Travel to [facility] in [facility] immediately. You to be seen in the emergency room first by Dr. Allen. She will make sure you are stable enough to be admitted to the hospital where you will be admitted under hospitalist care. You will require blood transfusions tonight to play catch up with blood loss over the last 4 days. Some clear if any other investigations to be carried out at this time to try and identify source of blood loss. Blood loss appears to be occult and likely coming from somewhere within the small bowel by history. Negative upper GI series and colonoscopies. Sepsis Event Note - Evaluation Sepsis Screening Result: No Definite Risk - Focused Exam Vital Signs: Vital Signs Temp Pulse Resp BP Pulse Ox 09/21/19 18:35 36.6 C 108 H 17 152/63 H 100 Date Exam was Performed: 09/21/19 Time Exam was Performed: 20:46 - My Orders Last 24 Hours: My Active Orders 09/21/19 19:01 Orthostatic Vital Signs [RC] ASDIRECTED 09/21/19 19:15 Sodium Chloride 0.9% [Normal Saline] 1,000 ml IV ASDIRECTED - Assessment/Plan Last 24 Hours: My Active Orders 09/21/19 19:01 Orthostatic Vital Signs [RC] ASDIRECTED 09/21/19 19:15 Sodium Chloride 0.9% [Normal Saline] 1,000 ml IV ASDIRECTED
[2019-09-21] MEDS ORDERED: Sodium Chloride 0.9% 1,000 ML IV SCH (19:15)
[2019-09-21] MEDS ORDERED: Ondansetron 4 MG Tab.DIS PO ONE (19:18)
== END 2019-09-21 21:00 ==
LOC: JD.ED 18:27
DX: K92.2 Gastrointestinal hemorrhage, unspecified (principal); D64.9 Anemia, unspecified; I10 Essential (primary) hypertension; F17.210 Nicotine dependence, cigarettes, uncomplicated; Z91.048 Other nonmedicinal substance allergy status; Z79.899 Other long term (current) drug therapy
CPT/HCPCS: 36415; 85025; 85610; 86850; 86900; 86901; 96360; 99285; A9270; J7030